=== PATIENT | male | born 1960 ===

== ENCOUNTER 2022-04-21 11:53 | Emergency (ER) | payer BC ==
[2022-05-15 11:41] LABS: ANION GAP 15.6 mEq/L (7-13); CHLORIDE,CL 97 mmol/L (98-107); ESTIMATED GFR 53 mL/min (>=60); SODIUM,NA 134 mmol/L (136-145)
[2022-05-15 11:42] LABS: HEMOGLOBIN A1C 5.9 % (<5.7)
== END 2022-04-21 14:35 | disposition home or self-care (01) ==
LOC: DL.ED 11:53
DX: R55 Syncope and collapse (principal); N39.0 Urinary tract infection, site not specified
CPT/HCPCS: 36415; 80053; 81001; 83036; 83735; 84443; 84484; 85025; 86140; 93005; 96360; 99284-25